=== PATIENT | male | born 1965 | race Native Hawaiian/Other Pacific Islander ===

== ENCOUNTER → 2017-10-29 | Outpatient (CLI) | payer BC ==
--- NOTE | 2017-10-29 16:05 | MRI ---
EXAM DESCRIPTION: Lumbar Spine w/wo Contrast CLINICAL HISTORY: 52 years Male, RADICULOPATHY. Patient had prior history of chemoradiation. The left hip. Radiating down to the left leg. COMPARISON: CT abdomen pelvis November 10, 2014. TECHNIQUE: Multiplanar multiecho imaging of the lumbar spine was performed with and without intravenous contrast administration. FINDINGS: The normal lordotic curvature of the lumbar spine is well preserved. The vertebral body heights are well-maintained with no acute compression deformity. The intervertebral disc spaces are well-maintained. The conus medullaris terminates at L1-L2 level.. The visualized spinal cord demonstrates no signal abnormality.Fatty signal abnormality is noted involving the L5, S1 vertebral bodies and the visualized coccyx, likely related to postradiation changes from prior treatment. L1-L2: No disc bulge. No spinal canal narrowing. No neural foramen narrowing. Mild bilateral facet arthropathy changes. L2-L3: No disc bulge. No spinal canal narrowing. No neural foramen narrowing. Mild bilateral facet arthropathy changes. L3-L4: Mild diffuse disc bulge, causing mild spinal canal narrowing, mild left lateral recess narrowing. Mild left neural foraminal narrowing.Moderate bilateral facet arthropathy changes. L4-L5: Mild diffuse disc bulge causing mild spinal canal narrowing and mild left lateral recess narrowing. Mild bilateral facet arthropathy changes. L5-S1: Fused disc bulge with no significant spinal canal narrowing or neural foramen narrowing. Mild bilateral facet arthropathy changes. The visualized prevertebral and paravertebral soft tissues appear unremarkable. IMPRESSION: 1. No acute compression deformity or subluxation/dislocation. 2. Multilevel degenerative changes of the lumbar spine, more predominant at L3-L4 and L4-L5 level with mild diffuse disc bulge and mild to moderate bilateral facet arthropathy changes left worse than right causing narrowing of the left lateral recess and probable nerve impingement on the left side. Electronically signed by: Gilbert Harris MD 10/29/2017 4:04 PM CDT
--- NOTE | 2017-10-29 17:16 | US ---
Procedure: US LOWER EXTREMITY VEINS LIMITED/UNILATERAL/FOLLOW UP, US LOWER EXTREMITY VEINS LIMITED/UNILATERAL/FOLLOW UP Exam Date: 10/29/2017 Ordering Provider: PAOLA CRUM Clinical Indication: Bilateral lower extremity edema and pain Comparison: None Real time ultrasound was utilized for evaluation of the deep veins of the bilateral lower extremity. Color Doppler and pulse Doppler analysis was performed, including B-mode/grayscale imaging, Doppler spectral analysis and color flow analysis. Real time visualization of the bilateral lower extremity deep veins was accomplished. Rippler images recorded. The deep veins demonstrated no abnormal intraluminal signal. The pulse Doppler and color Doppler flow patterns demonstrated normal venous flow with respiratory variation. There was increased flow with distal augmentation maneuvers. IMPRESSION: No evidence of DVT in the bilateral lower extremity. Electronically signed by: Jose Manuel Cordova MD 10/29/2017 5:14 PM CDT
--- NOTE | 2017-10-29 17:16 | US ---
Procedure: US LOWER EXTREMITY VEINS LIMITED/UNILATERAL/FOLLOW UP, US LOWER EXTREMITY VEINS LIMITED/UNILATERAL/FOLLOW UP Exam Date: 10/29/2017 Ordering Provider: PAOLA CRUM Clinical Indication: Bilateral lower extremity edema and pain Comparison: None Real time ultrasound was utilized for evaluation of the deep veins of the bilateral lower extremity. Color Doppler and pulse Doppler analysis was performed, including B-mode/grayscale imaging, Doppler spectral analysis and color flow analysis. Real time visualization of the bilateral lower extremity deep veins was accomplished. Dental Mechanic images recorded. The deep veins demonstrated no abnormal intraluminal signal. The pulse Doppler and color Doppler flow patterns demonstrated normal venous flow with respiratory variation. There was increased flow with distal augmentation maneuvers. IMPRESSION: No evidence of DVT in the bilateral lower extremity. Electronically signed by: Jose Manuel Cordova MD 10/29/2017 5:14 PM CDT
== END ==
LOC: MRI 13:00
DX: M51.16 Intervertebral disc disorders with radiculopathy, lumbar region (principal); R60.0 Localized edema